=== PATIENT | female | born 1975 | race Hispanic/Latino ===

== ENCOUNTER → 2018-03-02 | Day surgery (SDC) | payer OTHER ==
[~2018-03-02] MED LIST: AMLODIPINE BESY10 MG PO; FENTANYL CITRATE/PF 100MCG/2 ML INJ ONE; HYOSCYAMINE SULFATE 0.5 MG/ML AMP ONE; LIDOCAINE HCL 2% LOCAL INJ 5 ML SDV VIAL INJ ONE; LISINOPRIL10 MG PO; MIDAZOLAM HCL 2 MG/2 ML VIAL ONE; PROPOFOL IV EMULSION 10 MG/ML 50 ML VIAL ONE; blood pressure med
[2018-03-02 10:32] LABS: WBC,FECAL (FECAL LACTOFERRIN) NEGATIVE (NEGATIVE)
--- NOTE | 2018-03-02 10:49 | Operative Report ---
DATE OF PROCEDURE: March 02, 2018 REFERRING PHYSICIAN: Johnathan Padilla MD PROCEDURES PERFORMED 1. Esophagogastroduodenoscopy with biopsies. 2. Colonoscopy with polypectomy and biopsies. INDICATIONS FOR EGD: Dyspepsia. INDICATIONS FOR COLONOSCOPY: Diarrhea. MEDICATION: Patient was done under MAC. Please see anesthesiologist's note. PROCEDURE: With the patient in the left lateral decubitus position, the flexible fiberoptic Olympus gastroscope was introduced into the esophagus under direct visualization without any difficulty. There was some patchy erythema noted in the distal esophagus. The scope was then advanced with ease into the stomach. Mucosa overlying the antrum and the body revealed some patchy, intense erythema and moderate edema, and biopsies were obtained and sent to stain for H. pylori. Multiple polyps were noted in the body of the stomach as well as the fundus. They were hyperplastic-appearing. Some were partially excised with cold biopsy forceps. The pylorus was of normal contour and shape. It was intubated with ease, and the scope was advanced all the way to the 2nd portion of the duodenum. Biopsies were obtained from the proximal 2nd portion to rule out sprue. Several minute nodules were noted in the duodenal bulb, and some were partially excised with the cold biopsy forceps. The scope was then withdrawn back into the stomach and retroflexed. Some polyps were noted in the fundus; otherwise it appeared to be within normal limits. The cardia was within normal limits. The scope was then straightened out. The stomach was decompressed. Scope was subsequently withdrawn. Patient tolerated the procedure well. IMPRESSION 1. Mild distal esophagitis. 2. Gastritis, biopsied. Biopsies sent to stain for H. pylori. 3. Gastric polyps, some partially excised with cold biopsy forceps. 4. Duodenal bulb nodules, minute, biopsied. 5. Rule out sprue. PLAN: Follow up histology. Initiate Protonix 40 mg 1 p.o. q.a.m. a.c. The patient was then turned around. After adequate lubrication of the anal canal, a flexible fiberoptic Olympus colonoscope was inserted into the rectum with ease and advanced all the way to the cecum. Mucosa overlying the cecum appeared to be within normal limits. The ileocecal valve was intubated. The scope was advanced into the terminal ileum. Biopsies were obtained. The scope was then withdrawn back into the colon. It was then withdrawn slowly. Mucosa overlying the ascending grossly appeared to be within normal limits. One polyp was snared from the transverse colon. Mucosa overlying the distal transverse as well as the descending, sigmoid and rectum revealed some patchy, mild, inflammatory changes. Multiple random biopsies were obtained. One polyp was hot biopsied from the sigmoid colon. The scope was then retroflexed into the distal rectum, and small internal hemorrhoids were noted, none of which was actively bleeding. The scope was then straightened out. It was subsequently withdrawn after securing an adequate stool specimen that was sent for the appropriate stool studies. Patient tolerated the procedure well. IMPRESSION 1. Transverse colon polyp, snared. 2. Mild, patchy, left-sided colitis. 3. Sigmoid colon polyp, hot biopsied. 4. Internal hemorrhoids, none actively bleeding. PLAN: Follow up histology. Follow up stool studies. Initiate Flagyl 500 mg 1 p.o. q.6 h. times 14 days and VSL #3 DS 1 p.o. daily. Patient might benefit from a followup colonoscopy in 3 years. Job#: [id number] cc:JOHNATHAN PADILLA MD
[2018-03-02 14:36] LABS: C DIFFICILE TOXIN A&B AMP PROB NEGATIVE (NEGATIVE)
== END | disposition home or self-care (01) ==
LOC: OR 08:23
PROVIDERS: ATTEND Internal Medicine Gastroenterology
DX: K51.50 Left sided colitis without complications (principal); D12.5 Benign neoplasm of sigmoid colon; K31.7 Polyp of stomach and duodenum; K29.70 Gastritis, unspecified, without bleeding; Q40.2 Other specified congenital malformations of stomach; K29.80 Duodenitis without bleeding; K20.9 Esophagitis, unspecified; K64.8 Other hemorrhoids; I10 Essential (primary) hypertension; Z68.37 Body mass index [BMI] 37.0-37.9, adult
CPT/HCPCS: 43239; 45380; 45384; 45385; 81025; 83630; 83993; 87045; 87177; 87328; 87493; J1980; J2001; J2250; 45378

== ENCOUNTER 2018-03-18 19:19 | Emergency (ER) | payer OTHER ==
[~2018-03-18] VITALS: Ht 152.4 cm; Wt 65.8 kg
[~2018-03-18 19:19] MED LIST changes: -FENTANYL CITRATE/PF 100MCG/2 ML INJ ONE; -HYOSCYAMINE SULFATE 0.5 MG/ML AMP ONE; -LIDOCAINE HCL 2% LOCAL INJ 5 ML SDV VIAL INJ ONE; -MIDAZOLAM HCL 2 MG/2 ML VIAL ONE; -PROPOFOL IV EMULSION 10 MG/ML 50 ML VIAL ONE
[2018-03-18 20:18] LABS: BASOPHILS # (AUTO) 0.1 (0.0-0.1); BASOPHILS % 0.8 % (0.0-1.0); EOSINOPHILS # (AUTO) 0.2 (0.0-0.4); EOSINOPHILS % 1.9 % (0.0-6.0); HEMATOCRIT 40.5 % (34.2-44.1); HEMOGLOBIN 13.4 g/dL (12.0-16.0); LYMPHOCYTES # (AUTO) 3.8 (1.0-3.2); LYMPHOCYTES % 30.1 % (18.0-39.1); MEAN CORPUSCULAR HEMOGLOBIN 28.5 pg (28-32); MEAN CORPUSCULAR HGB CONC 33.1 g/dL (31-35); MEAN CORPUSCULAR VOLUME 86.2 fL (81-99); MONOCYTES # (AUTO) 0.4 (0.2-0.8); MONOCYTES % 3.5 % (4.4-11.3); NEUTROPHILS % 63.4 % (38.7-80.0); PLATELET COUNT 326 x10e3/uL (140-360); RED CELL DISTRIBUTION WIDTH 12.9 % (11.7-14.4)
[2018-03-18 20:35] LABS: ALANINE AMINOTRANSFERASE 21 IU/L (0-55); ALBUMIN 4.1 g/dL (3.5-5.0); ALBUMIN/GLOBULIN RATIO 1.1 (0.8-2.0); ALKALINE PHOSPHATASE 123 IU/L (40-150); ANION GAP 15.6 mmol/L (8-16); BLOOD UREA NITROGEN 16 mg/dL (7-26); BUN/CREATININE RATIO 20 (6-25); CALCIUM 9.7 mg/dL (8.4-10.2); CARBON DIOXIDE 23 mmol/L (22-29); CHLORIDE 105 mmol/L (98-107); EST GLOMERULAR FILTRATION RATE > 60 ML/MIN (60-); GLUCOSE 178 mg/dL (74-118); POTASSIUM 3.6 mmol/L (3.5-5.1); SODIUM 140 mmol/L (136-145)
[2018-03-18 21:24] LABS: BILIRUBIN,URINE NEGATIVE (NEGATIVE); CLARITY,URINE CLEAR (CLEAR); COLOR,URINE YELLOW (YELLOW); KETONES,URINE NEGATIVE (NEGATIVE); LEUKOCYTE ESTERASE ,URINE NEGATIVE (NEGATIVE); NITRITE,URINE NEGATIVE (NEGATIVE); PROTEIN,URINE DIPSTICK NEGATIVE (NEGATIVE); URINE UROBILINOGEN 0.2 mg/dL (0.2 - 1)
[2018-03-18 21:25] LABS: AMPHETAMINES SCREEN,URINE NEGATIVE (NEGATIVE); BENZODIAZEPINES SCREEN,URINE NEGATIVE (NEGATIVE); PHENCYCLIDINE SCREEN,URINE NEGATIVE (NEGATIVE)
[2018-03-18] MEDS ORDERED: MORPHINE SULFATE 2 MG/ML SYR IV STA (21:25)
[2018-03-18] MEDS ORDERED: SODIUM CHLORIDE 0.9% 1000ML 1,000 ML IV ONE ×2 (21:30)
[2018-03-18] MEDS ORDERED: ONDANSETRON HCL 4 MG ORAL DISINTEGRATING TAB PO ONE ×2 (21:30)
[2018-03-18] MEDS ORDERED: MORPHINE SULFATE 2 MG/ML SYR IV ONE (21:30)
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
[2018-03-18 21:37] LABS: RBC,URINE 0-5 /HPF (0-5); WBC,URINE (MAN) 0-5 /HPF (0-5)
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
[2018-03-18] MEDS ORDERED: IOPAMIDOL 370 MG/ML 200 ML INFUS..BTL INJ ONE (22:25)
[2018-03-18] MEDS ORDERED: SODIUM CHLORIDE 0.9% 50ML 50 ML ONE (22:25)
[2018-03-18 22:54] VITALS: BP 117/71
== END 2018-03-18 22:59 | disposition home or self-care (01) ==
LOC: ER 19:19 → EDBD 19:19 → ER 22:59
DX: S00.83XA Contusion of other part of head, initial encounter (principal); S20.219A Contusion of unspecified front wall of thorax, initial encounter; S30.1XXA Contusion of abdominal wall, initial encounter; S50.12XA Contusion of left forearm, initial encounter; S50.11XA Contusion of right forearm, initial encounter; S90.32XA Contusion of left foot, initial encounter; V47.5XXA Car driver injured in collision with fixed or stationary object in traffic accident, initial encounter; Y92.411 Interstate highway as the place of occurrence of the external cause; E78.00 Pure hypercholesterolemia, unspecified
CPT/HCPCS: 36415; 70450; 71260; 72125; 73630; 74177; 80053; 80307; 80320; 81001; 84702; 85025; 99284; J2270; J7030; Q9967

== ENCOUNTER 2019-12-07 18:46 | Emergency (ER) | payer SELFPAY ==
[~2019-12-07] VITALS: Ht 152.4 cm; Wt 65.8 kg
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
[2019-12-07 20:05] LABS: BASOPHILS # (AUTO) 0.1 (0.0-0.1); BASOPHILS % 0.5 % (0.0-1.0); EOSINOPHILS # (AUTO) 0.1 (0.0-0.4); EOSINOPHILS % 0.5 % (0.0-6.0); HEMATOCRIT 40.5 % (34.2-44.1); HEMOGLOBIN 13.8 g/dL (12.0-16.0); LYMPHOCYTES # (AUTO) 3.2 (1.0-3.2); LYMPHOCYTES % 29.2 % (18.0-39.1); MEAN CORPUSCULAR HEMOGLOBIN 30.7 pg (28-32); MEAN CORPUSCULAR HGB CONC 34.1 g/dL (31-35); MEAN CORPUSCULAR VOLUME 90.2 fL (81-99); MONOCYTES # (AUTO) 0.9 (0.2-0.8); NEUTROPHILS # (AUTO) 6.8 (2.1-6.9); NEUTROPHILS % 61.4 % (38.7-80.0); PLATELET COUNT 308 x10e3/uL (140-360); RED BLOOD COUNT 4.49 x10e6/uL (3.6-5.1); RED CELL DISTRIBUTION WIDTH 12.7 % (11.7-14.4)
[2019-12-07 20:20] LABS: INR 0.93; PARTIAL THROMBOPLASTIN TIME 28.1 seconds (23.8-35.5)
[2019-12-07 20:25] LABS: ALANINE AMINOTRANSFERASE 42 IU/L (0-55); ALBUMIN 4.3 g/dL (3.5-5.0); ALKALINE PHOSPHATASE 89 IU/L (40-150); ANION GAP 17.7 mmol/L (8-16); BLOOD UREA NITROGEN 11 mg/dL (7-26); BUN/CREATININE RATIO 14 (6-25); CALCIUM 10.1 mg/dL (8.4-10.2); CARBON DIOXIDE 22 mmol/L (22-29); CHLORIDE 102 mmol/L (98-107); CREATINE KINASE 102 IU/L (29-168); CREATININE, SERUM 0.79 mg/dL (0.57-1.11); EST GLOMERULAR FILTRATION RATE > 60 ML/MIN (60-); GLUCOSE 129 mg/dL (74-118); POTASSIUM 3.7 mmol/L (3.5-5.1); SODIUM 138 mmol/L (136-145)
--- NOTE | 2019-12-07 20:34 | Diagnostic Imaging Report ---
EXAMINATION: Head CT without contrast. HISTORY:Dizziness, headache, high blood pressure. COMPARISON:CT brain from 03/18/2018. TECHNIQUE: Multidetector axial images were obtained from the foramen magnum to the vertex without contrast. The images were reconstructed using brain and bone algorithms. Thin section brain images were reformatted into coronal and sagittal planes. Dose modulation, iterative reconstruction, and/or weight based adjustment of the mA/kV was utilized to reduce the radiation dose to as low as reasonably achievable. Intravenous contrast: None IMAGE QUALITY: Acceptable. FINDINGS: Skull/scalp: No lytic or blastic. lesions. No surgical changes. Parenchyma: No abnormal density. No acute hemorrhage, mass or acute major vascular territorial infarct. Arteries: No density suggestive of thrombosis. Dural sinuses: No abnormal density suggestive of thrombosis. Ventricles: No hydrocephalus or displacement. Extra-axial spaces: No abnormal density. Brain volume: Normal for age. Craniocervical junction: No mass, Chiari malformation, or basilar invagination. Sella: No mass. Paranasal/mastoid sinuses: Near complete opacification of the visualized portion of right maxillary sinus. IMPRESSION: No intracranial abnormality. Signed by: Dr. Nano Dumont M.D. on 12/07/2019 8:31 PM
[2019-12-07 20:43] LABS: BILIRUBIN,URINE NEGATIVE (NEGATIVE); CLARITY,URINE CLEAR (CLEAR); COLOR,URINE YELLOW (YELLOW); KETONES,URINE 1+ (NEGATIVE); LEUKOCYTE ESTERASE ,URINE NEGATIVE (NEGATIVE); NITRITE,URINE NEGATIVE (NEGATIVE); PROTEIN,URINE DIPSTICK NEGATIVE (NEGATIVE); URINE UROBILINOGEN 0.2 mg/dL (0.2 - 1)
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
[2019-12-07 20:58] LABS: BACTERIA,URINE MODERATE /HPF; EPITHELIAL CELLS,URINE MODERATE /LPF
[2019-12-07 20:59] LABS: PREGNANCY TEST, URINE NEGATIVE (NEGATIVE)
[2019-12-07] MEDS ORDERED: LORAZEPAM 1 MG TAB PO ONE (22:00)
[2019-12-07] MEDS ORDERED: IOPAMIDOL 370 MG/ML 200 ML INFUS..BTL INJ ONE (22:06)
[2019-12-07] MEDS ORDERED: SODIUM CHLORIDE 0.9% 50ML 50 ML ONE (22:06)
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
[2019-12-07 23:48] VITALS: BP 134/93
== END 2019-12-07 23:51 | disposition home or self-care (01) ==
LOC: ER 18:46
DX: R07.89 Other chest pain (principal); R06.00 Dyspnea, unspecified; R51 Headache; F41.9 Anxiety disorder, unspecified; I10 Essential (primary) hypertension; E78.00 Pure hypercholesterolemia, unspecified
CPT/HCPCS: 36415; 70450; 71045; 71260; 80053; 81001; 81025; 82550; 82553; 84484; 85025; 85379; 85610; 85730; 93005; 99284; Q9967